=== PATIENT | male | born 1985 | race African-American/Black ===

== ENCOUNTER 2017-03-08 15:58 | Emergency (ER) | payer SELFPAY ==
[~2017-03-08] VITALS: Ht 175.3 cm; Wt 85.0 kg
[2017-03-08 17:34] VITALS: BP 133/82
== END 2017-03-08 19:30 | disposition left against medical advice (07) ==
LOC: ER 15:58
DX: Z04.3 Encounter for examination and observation following other accident (principal); Z53.21 Procedure and treatment not carried out due to patient leaving prior to being seen by health care provider